=== PATIENT | male | born 1985 ===

== ENCOUNTER 2023-04-18 12:53 | Inpatient (IN) | payer MEDICAID ==
[~2023-04-18] VITALS: Ht 177.8 cm; Wt 79.4 kg
[~2023-04-18 12:53] MED LIST: ALBUMIN HUMAN 25% 50 ML IV SCH
[2023-04-18 13:11] VITALS: BP 111/60; PULSE 103; RESP 18; TEMP 97.7; O2SAT 100
[2023-04-18 15:11] LABS: BASOPHILS % (AUTO) 0.2 % (0.0-2.0); EOSINOPHILS # (AUTO) 0.9 K/uL (0-0.4); EOSINOPHILS % (AUTO) 5.3 % (0.0-4.0); LYMPHOCYTES # (AUTO) 0.7 K/uL (2.0-11.5); LYMPHOCYTES % (AUTO) 4.1 % (20.5-51.1); MEAN CORPUSCULAR HEMOGLOBIN 33 pg (27-31); MEAN CORPUSCULAR HGB CONC 34 g/dL (33-37); MEAN CORPUSCULAR VOLUME 95.6 fL (80-94); MONOCYTES # (AUTO) 2.5 K/uL (0.8-1.0); NEUTROPHILS # (AUTO) 12.7 K/uL (1.8-7.7); NEUTROPHILS % (AUTO) 75.4 % (42.2-75.2); PLATELET COUNT (AUTO) 85 K/uL (140-450); RED CELL DISTRIBUTION WIDTH 19.1 % (11.6-13.7); WHITE BLOOD COUNT (AUTO) 16.8 K/uL (4.8-10.8)
[2023-04-18 15:14] LABS: HEMOGLOBIN 6.8 g/dL (12.0-18.0)
[2023-04-18 15:32] LABS: INR 1.85 (0.8-1.2); LACTIC ACID 2.8 mmol/L (0.4-2.0); PARTIAL THROMBOPLASTIN TIME 36.2 secs (22-35.6); PROTHROMBIN TIME 18.9 secs (10.8-13.4)
[2023-04-18 15:37] LABS: ALBUMIN 1.7 g/dL (3.4-5.0); ANION GAP 13.4 (8-16); CALCIUM 7.5 mg/dL (8.5-10.1); CARBON DIOXIDE 19.8 mmol/L (21-32); CREATININE 3.4 mg/dL (0.6-1.3); POTASSIUM 4.2 mmol/L (3.5-5.1); TOTAL BILIRUBIN 8.6 mg/dL (0.0-1.0); TOTAL PROTEIN, SERUM 6.4 g/dL (6.4-8.2)
[2023-04-18] MEDS ORDERED: cefTRIAXone 1,000 MG VIAL ONE (15:54)
[2023-04-18] MEDS ORDERED: OCTREOTIDE ACETATE 1.25 MG in NACL 0.9% 250 ML IV SCH (15:55)
[2023-04-18] MEDS ORDERED: ALBUMIN HUMAN 25% 50 ML IV ONE (15:55)
[2023-04-18] MEDS ORDERED: ONDANSETRON 4 MG/2 ML VIAL IVP PRN (16:30)
[2023-04-18] MEDS ORDERED: POTASSIUM CHLORIDE 10 MEQ TABER PO PRN (16:30)
[2023-04-18] MEDS ORDERED: MAGNESIUM OXIDE 400 MG TAB PO PRN (16:30)
[2023-04-18] MEDS ORDERED: KCL 20 MEQ IN 100 mL PREMIX 200 ML IV PRN (16:30)
[2023-04-18] MEDS: OCTREOTIDE ACETATE 1.25 MG in NACL 0.9% 250 ML IV SCH (17:41)
[2023-04-18 20:40] VITALS: BP 112/69; PULSE 103; PULSE 97; RESP 18; TEMP 97.9; O2SAT 100
[2023-04-18] MEDS: PANTOPRAZOLE 40 MG INJ VIAL IVP SCH (21:51)
[2023-04-18 23:29] LABS: HEMATOCRIT 22.5 % (36-52); HEMOGLOBIN 7.6 g/dL (12.0-18.0)
[2023-04-19] VITALS: BP 98/65; PULSE 91; PULSE 93; RESP 18; TEMP 96.4; O2SAT 97
[2023-04-19] MEDS: ALBUMIN HUMAN 25% 50 ML IV SCH ×4 (00:01→18:31)
[2023-04-19 04:00] VITALS: BP 129/75; PULSE 98; PULSE 99; RESP 18; TEMP 96.8; O2SAT 100
[2023-04-19 06:40] LABS: BASOPHILS # (AUTO) 0.1 K/uL (0.00-0.22); BASOPHILS % (AUTO) 0.5 % (0.0-2.0); EOSINOPHILS # (AUTO) 1.7 K/uL (0-0.4); EOSINOPHILS % (AUTO) 10.8 % (0.0-4.0); HEMATOCRIT 23.2 % (36-52); HEMOGLOBIN 7.9 g/dL (12.0-18.0); LYMPHOCYTES # (AUTO) 0.8 K/uL (2.0-11.5); MEAN CORPUSCULAR HEMOGLOBIN 32 pg (27-31); MEAN CORPUSCULAR HGB CONC 34 g/dL (33-37); MEAN CORPUSCULAR VOLUME 93.3 fL (80-94); MONOCYTES # (AUTO) 1.6 K/uL (0.8-1.0); MONOCYTES % (AUTO) 10.7 % (1.7-9.3); NEUTROPHILS # (AUTO) 11.3 K/uL (1.8-7.7); PLATELET COUNT (AUTO) 79 K/uL (140-450); RED BLOOD CELL COUNT(AUTO) 2.49 MIL/uL (4.20-6.10); RED CELL DISTRIBUTION WIDTH 19.1 % (11.6-13.7); WHITE BLOOD COUNT (AUTO) 15.4 K/uL (4.8-10.8)
[2023-04-19 07:03] LABS: ALBUMIN 2.1 g/dL (3.4-5.0); ANION GAP 12.8 (8-16); CALCIUM 7.7 mg/dL (8.5-10.1); CARBON DIOXIDE 20.2 mmol/L (21-32); CREATININE 3.3 mg/dL (0.6-1.3); MAGNESIUM 1.8 mg/dL (1.8-2.4); PHOSPHORUS 4.6 mg/dL (2.5-4.9); TOTAL BILIRUBIN 9.7 mg/dL (0.0-1.0); TOTAL PROTEIN, SERUM 6.6 g/dL (6.4-8.2)
[2023-04-19 08:00] VITALS: BP 121/75; PULSE 94; RESP 18; RESP 19; TEMP 97.8; O2SAT 100
[2023-04-19] MEDS: PANTOPRAZOLE 40 MG INJ VIAL IVP SCH ×2 (08:53→20:01)
[2023-04-19 12:00] VITALS: BP 118/70; PULSE 101; RESP 19; TEMP 98.1; O2SAT 100
[2023-04-19] MEDS ORDERED: PHYTONADIONE 10 MG in NACL 0.9% 50 ML IV SCH (13:00)
[2023-04-19] MEDS ORDERED: FUROSEMIDE 20 MG/2 ML VIAL IVP SCH (13:00)
[2023-04-19 16:00] VITALS: BP 108/52; PULSE 100; PULSE 107; RESP 19; TEMP 98.2; O2SAT 100
[2023-04-19 17:18] LABS: GLUCOSE,BODY FLUID 131 mg/dL
[2023-04-19 17:43] LABS: PROTEIN, BODY FLUID 0.5 g/dL
[2023-04-19] MEDS: OCTREOTIDE ACETATE 1.25 MG in NACL 0.9% 250 ML IV SCH (17:57)
[2023-04-19] MEDS ORDERED: FUROSEMIDE 40 MG/4 ML VIAL IVP SCH (18:00)
[2023-04-19] MEDS ORDERED: FUROSEMIDE 40 MG/4 ML VIAL IVP ONE (18:00)
[2023-04-19 18:36] LABS: RBC, BODY FLUID 684 /cu. mm.; WBC, BODY FLUID 4 /cu. mm.
[2023-04-19 18:49] LABS: APPEARANCE,SPUN,BODY FLUID CLEAR (CLEAR); APPEARANCE,UNSPUN,BODY FLUID CLEAR (CLEAR); COLOR,BODY FLUID AMBER (LT YELLOW); SPECIMENTYPE,BODY FLUID PARACENTESIS; TOTAL VOLUME,BODY FLUID 4600 mL
[2023-04-19 20:00] VITALS: BP 117/62; PULSE 107; PULSE 112; RESP 18; TEMP 97.9; O2SAT 100
[2023-04-20] VITALS: BP 109/55; PULSE 109; PULSE 117; RESP 19; TEMP 98.1; O2SAT 100
[2023-04-20] MEDS: ALBUMIN HUMAN 25% 50 ML IV SCH ×3 (00:10→15:10)
[2023-04-20 04:00] VITALS: BP 104/61; PULSE 99; RESP 18; TEMP 98; O2SAT 100
[2023-04-20 07:12] LABS: BASOPHILS % (AUTO) 0.2 % (0.0-2.0); EOSINOPHILS # (AUTO) 1.3 K/uL (0-0.4); EOSINOPHILS % (AUTO) 12.1 % (0.0-4.0); LYMPHOCYTES # (AUTO) 0.8 K/uL (2.0-11.5); MEAN CORPUSCULAR HEMOGLOBIN 32 pg (27-31); MEAN CORPUSCULAR HGB CONC 35 g/dL (33-37); MEAN CORPUSCULAR VOLUME 93.4 fL (80-94); MONOCYTES # (AUTO) 1.2 K/uL (0.8-1.0); MONOCYTES % (AUTO) 10.7 % (1.7-9.3); NEUTROPHILS # (AUTO) 7.7 K/uL (1.8-7.7); PLATELET COUNT (AUTO) 59 K/uL (140-450); RED BLOOD CELL COUNT(AUTO) 2.09 MIL/uL (4.20-6.10); RED CELL DISTRIBUTION WIDTH 18.8 % (11.6-13.7); WHITE BLOOD COUNT (AUTO) 10.9 K/uL (4.8-10.8)
[2023-04-20 07:33] LABS: HEMATOCRIT 19.5 % (36-52); HEMOGLOBIN 6.8 g/dL (12.0-18.0)
[2023-04-20 08:00] VITALS: BP 110/58; PULSE 94; PULSE 96; RESP 20; TEMP 97.9; O2SAT 98
[2023-04-20] MEDS: LACTULOSE 20 GM/30 ML UDC PO SCH (09:00)
[2023-04-20 09:01] LABS: ALBUMIN 2.1 g/dL (3.4-5.0); ANION GAP 15.8 (8-16); CALCIUM 7.4 mg/dL (8.5-10.1); CARBON DIOXIDE 17.3 mmol/L (21-32); CREATININE 2.9 mg/dL (0.6-1.3); MAGNESIUM 1.8 mg/dL (1.8-2.4); PHOSPHORUS 4.4 mg/dL (2.5-4.9); POTASSIUM 4.1 mmol/L (3.5-5.1); TOTAL BILIRUBIN 7.5 mg/dL (0.0-1.0); TOTAL PROTEIN, SERUM 5.6 g/dL (6.4-8.2)
[2023-04-20] MEDS: PANTOPRAZOLE 40 MG INJ VIAL IVP SCH ×2 (09:06→21:32)
[2023-04-20] MEDS: MORPHINE SULFATE 4 MG/ML SYR IVP PRN (09:15)
[2023-04-20 12:00] VITALS: BP 106/48; PULSE 103; PULSE 109; RESP 20; TEMP 98; O2SAT 98
[2023-04-20] MEDS ORDERED: FUROSEMIDE 20 MG/2 ML VIAL IVP ONE (14:10)
[2023-04-20] MEDS ORDERED: ALBUMIN HUMAN 25% 50 ML IV ONE (15:03)
[2023-04-20 16:00] VITALS: BP 126/74; PULSE 106; PULSE 107; RESP 20; TEMP 97.6; O2SAT 99
[2023-04-20 20:00] VITALS: BP 112/72; PULSE 80; RESP 18; TEMP 97.6; O2SAT 97
[2023-04-20] MEDS: OCTREOTIDE ACETATE 1.25 MG in NACL 0.9% 250 ML IV SCH (21:32)
[2023-04-20] MEDS: ACETAMINOPHEN 325 MG TAB PO PRN (21:34)
[2023-04-21] VITALS: BP 104/63; PULSE 100; PULSE 107; RESP 16; TEMP 98.2; O2SAT 96
[2023-04-21] MEDS: MORPHINE SULFATE 4 MG/ML SYR IVP PRN (03:29)
[2023-04-21 04:00] VITALS: BP 100/56; PULSE 102; PULSE 104; RESP 18; TEMP 98.8; O2SAT 97
[2023-04-21 07:42] LABS: ALBUMIN 2.1 g/dL (3.4-5.0); ANION GAP 13.3 (8-16); CALCIUM 7.5 mg/dL (8.5-10.1); CARBON DIOXIDE 20.1 mmol/L (21-32); CREATININE 2.4 mg/dL (0.6-1.3); MAGNESIUM 1.5 mg/dL (1.8-2.4); PHOSPHORUS 4.3 mg/dL (2.5-4.9); POTASSIUM 4.4 mmol/L (3.5-5.1); TOTAL PROTEIN, SERUM 5.7 g/dL (6.4-8.2)
[2023-04-21 07:53] LABS: BASOPHILS % (AUTO) 0.1 % (0.0-2.0); EOSINOPHILS # (AUTO) 1.2 K/uL (0-0.4); EOSINOPHILS % (AUTO) 9.7 % (0.0-4.0); HEMATOCRIT 20.9 % (36-52); HEMOGLOBIN 7.1 g/dL (12.0-18.0); LYMPHOCYTES # (AUTO) 0.8 K/uL (2.0-11.5); LYMPHOCYTES % (AUTO) 6.6 % (20.5-51.1); MEAN CORPUSCULAR HEMOGLOBIN 32 pg (27-31); MEAN CORPUSCULAR HGB CONC 34 g/dL (33-37); MEAN CORPUSCULAR VOLUME 93.4 fL (80-94); MONOCYTES # (AUTO) 1.8 K/uL (0.8-1.0); NEUTROPHILS # (AUTO) 8.8 K/uL (1.8-7.7); NEUTROPHILS % (AUTO) 69.6 % (42.2-75.2); PLATELET COUNT (AUTO) 58 K/uL (140-450); RED BLOOD CELL COUNT(AUTO) 2.24 MIL/uL (4.20-6.10); RED CELL DISTRIBUTION WIDTH 18.1 % (11.6-13.7)
[2023-04-21 08:00] VITALS: BP 123/84; PULSE 109; PULSE 110; RESP 20; TEMP 97.9; O2SAT 99
[2023-04-21 08:08] LABS: WHITE BLOOD COUNT (AUTO) 12.7 K/uL (4.8-10.8)
[2023-04-21] MEDS: LACTULOSE 20 GM/30 ML UDC PO SCH (09:00)
[2023-04-21] MEDS ORDERED: ALBUMIN HUMAN 25% 100 ML IV SCH (09:00)
[2023-04-21] MEDS: PANTOPRAZOLE 40 MG INJ VIAL IVP SCH ×2 (10:44→20:31)
[2023-04-21 12:00] VITALS: BP 131/76; PULSE 105; PULSE 108; RESP 20; TEMP 98.1; O2SAT 98
[2023-04-21] MEDS: MAG SULF 2000 MG/WATER PREMIX 50 ML IV PRN (13:04)
[2023-04-21] MEDS ORDERED: FUROSEMIDE 20 MG/2 ML VIAL IVP ONE (14:15)
[2023-04-21 16:00] VITALS: BP 111/53; PULSE 105; PULSE 119; RESP 20; TEMP 98.8; O2SAT 98
[2023-04-21 20:00] VITALS: BP 101/47; PULSE 102; PULSE 97; RESP 20; TEMP 97.9; O2SAT 99
[2023-04-21] MEDS: OCTREOTIDE ACETATE 1.25 MG in NACL 0.9% 250 ML IV SCH (20:51)
[2023-04-21] MEDS: ACETAMINOPHEN 325 MG TAB PO PRN (23:22)
[2023-04-22] VITALS (7 sets, daily range): BP systolic 98–130; BP diastolic 41–75; PULSE 93–103; RESP 18–19; TEMP 98.2–98.7; O2SAT 97–100
[2023-04-22 06:32] LABS: BASOPHILS % (AUTO) 0.5 % (0.0-2.0); EOSINOPHILS % (AUTO) 10.9 % (0.0-4.0); LYMPHOCYTES # (AUTO) 1.1 K/uL (2.0-11.5); LYMPHOCYTES % (AUTO) 11.6 % (20.5-51.1); MEAN CORPUSCULAR HEMOGLOBIN 32 pg (27-31); MEAN CORPUSCULAR HGB CONC 35 g/dL (33-37); MEAN CORPUSCULAR VOLUME 92.9 fL (80-94); MONOCYTES # (AUTO) 1.3 K/uL (0.8-1.0); MONOCYTES % (AUTO) 14.1 % (1.7-9.3); NEUTROPHILS % (AUTO) 62.9 % (42.2-75.2); PLATELET COUNT (AUTO) 53 K/uL (140-450); RED BLOOD CELL COUNT(AUTO) 2.06 MIL/uL (4.20-6.10); RED CELL DISTRIBUTION WIDTH 18.1 % (11.6-13.7); WHITE BLOOD COUNT (AUTO) 9.5 K/uL (4.8-10.8)
[2023-04-22 07:00] LABS: ALBUMIN 2.1 g/dL (3.4-5.0); ANION GAP 11.5 (8-16); CALCIUM 7.3 mg/dL (8.5-10.1); CARBON DIOXIDE 21.7 mmol/L (21-32); CREATININE 2.3 mg/dL (0.6-1.3); MAGNESIUM 1.6 mg/dL (1.8-2.4); PHOSPHORUS 3.9 mg/dL (2.5-4.9); POTASSIUM 4.2 mmol/L (3.5-5.1); TOTAL PROTEIN, SERUM 5.3 g/dL (6.4-8.2)
[2023-04-22 07:38] LABS: HEMOGLOBIN 6.6 g/dL (12.0-18.0)
[2023-04-22 07:39] LABS: HEMATOCRIT 19.1 % (36-52)
[2023-04-22] MEDS ORDERED: FUROSEMIDE 20 MG/2 ML VIAL IVP SCH ×2 (09:00→16:00)
[2023-04-22] MEDS: LACTULOSE 20 GM/30 ML UDC PO SCH (09:14)
[2023-04-22] MEDS: PANTOPRAZOLE 40 MG INJ VIAL IVP SCH ×2 (09:15→20:56)
[2023-04-22] MEDS: MORPHINE SULFATE 4 MG/ML SYR IVP PRN (15:29)
[2023-04-22] MEDS: ALBUMIN HUMAN 25% 100 ML IV SCH (20:55)
[2023-04-23] VITALS: BP 111/46; PULSE 106; PULSE 107; RESP 18; TEMP 98; O2SAT 100
[2023-04-23 04:00] VITALS: BP 137/79; PULSE 102; PULSE 99; RESP 18; TEMP 97.5; O2SAT 100
[2023-04-23 06:53] LABS: BASOPHILS # (AUTO) 0.1 K/uL (0.00-0.22); BASOPHILS % (AUTO) 0.6 % (0.0-2.0); LYMPHOCYTES % (AUTO) 10.1 % (20.5-51.1); MEAN CORPUSCULAR HEMOGLOBIN 32 pg (27-31); MEAN CORPUSCULAR HGB CONC 35 g/dL (33-37); MEAN CORPUSCULAR VOLUME 92.2 fL (80-94); MONOCYTES # (AUTO) 1.6 K/uL (0.8-1.0); NEUTROPHILS # (AUTO) 5.8 K/uL (1.8-7.7); NEUTROPHILS % (AUTO) 61.3 % (42.2-75.2); PLATELET COUNT (AUTO) 53 K/uL (140-450); RED BLOOD CELL COUNT(AUTO) 2.12 MIL/uL (4.20-6.10); RED CELL DISTRIBUTION WIDTH 17.3 % (11.6-13.7); WHITE BLOOD COUNT (AUTO) 9.5 K/uL (4.8-10.8)
[2023-04-23 07:11] LABS: INR 2.64 (0.8-1.2); PROTHROMBIN TIME 26.5 secs (10.8-13.4)
[2023-04-23 07:23] LABS: ALBUMIN 2.3 g/dL (3.4-5.0); ANION GAP 12.7 (8-16); CALCIUM 7.5 mg/dL (8.5-10.1); CARBON DIOXIDE 21.3 mmol/L (21-32); CREATININE 1.5 mg/dL (0.6-1.3); MAGNESIUM 1.4 mg/dL (1.8-2.4); PHOSPHORUS 3.1 mg/dL (2.5-4.9); TOTAL BILIRUBIN 7.7 mg/dL (0.0-1.0); TOTAL PROTEIN, SERUM 5.7 g/dL (6.4-8.2)
[2023-04-23 08:00] VITALS: BP 124/72; PULSE 101; PULSE 98; RESP 18; TEMP 98.6; O2SAT 100
[2023-04-23 08:17] LABS: HEMATOCRIT 19.6 % (36-52); HEMOGLOBIN 6.8 g/dL (12.0-18.0)
[2023-04-23] MEDS: PANTOPRAZOLE 40 MG INJ VIAL IVP SCH (08:48)
[2023-04-23] MEDS: ALBUMIN HUMAN 25% 100 ML IV SCH ×2 (08:48→20:51)
[2023-04-23] MEDS: FUROSEMIDE 40 MG/4 ML VIAL IVP SCH (08:49)
[2023-04-23] MEDS ORDERED: ALBUMIN HUMAN 25% 100 ML IV SCH (09:00)
[2023-04-23] MEDS: LACTULOSE 20 GM/30 ML UDC PO SCH (09:02)
[2023-04-23] MEDS: MULTIVITAMIN/MINERALS 1 TAB PO SCH (09:02)
[2023-04-23] MEDS: THIAMINE 100 MG TAB PO SCH (09:03)
[2023-04-23 12:00] VITALS: BP 106/67; PULSE 96; PULSE 98; RESP 18; TEMP 96.9; O2SAT 100
[2023-04-23] MEDS ORDERED: MIDAZOLAM 2 MG/2 ML VIAL ONE (12:58)
[2023-04-23] MEDS ORDERED: fentaNYL citrate 0.05 MG/ML VIAL ONE (12:58)
[2023-04-23] MEDS ORDERED: MIDAZOLAM 2 MG/2 ML VIAL IVP ONE (15:05)
[2023-04-23] MEDS ORDERED: fentaNYL citrate 0.05 MG/ML VIAL IVP ONE (15:05)
[2023-04-23] MEDS ORDERED: PHYTONADIONE 10 MG in NACL 0.9% 50 ML IV SCH (15:30)
[2023-04-23 16:00] VITALS: BP 122/82; PULSE 94; PULSE 96; RESP 18; TEMP 98.2; O2SAT 100
[2023-04-23] MEDS: MAG SULF 2000 MG/WATER PREMIX 50 ML IV PRN (17:01)
[2023-04-23] MEDS: FERROUS GLUCONATE 324 MG TAB PO SCH (17:41)
[2023-04-23 20:00] VITALS: BP 120/60; PULSE 108; PULSE 99; RESP 18; TEMP 97.5; O2SAT 100; O2SAT 98
[2023-04-23 23:40] LABS: BASOPHILS # (AUTO) 0.1 K/uL (0.00-0.22); BASOPHILS % (AUTO) 0.5 % (0.0-2.0); EOSINOPHILS # (AUTO) 0.9 K/uL (0-0.4); EOSINOPHILS % (AUTO) 8.5 % (0.0-4.0); HEMOGLOBIN 7.9 g/dL (12.0-18.0); LYMPHOCYTES # (AUTO) 1.2 K/uL (2.0-11.5); MEAN CORPUSCULAR HEMOGLOBIN 32 pg (27-31); MEAN CORPUSCULAR HGB CONC 34 g/dL (33-37); MEAN CORPUSCULAR VOLUME 92.5 fL (80-94); MONOCYTES # (AUTO) 1.6 K/uL (0.8-1.0); NEUTROPHILS # (AUTO) 6.8 K/uL (1.8-7.7); PLATELET COUNT (AUTO) 53 K/uL (140-450); RED BLOOD CELL COUNT(AUTO) 2.49 MIL/uL (4.20-6.10); RED CELL DISTRIBUTION WIDTH 16.7 % (11.6-13.7); WHITE BLOOD COUNT (AUTO) 10.5 K/uL (4.8-10.8)
[2023-04-24] VITALS: BP 113/58; PULSE 103; PULSE 109; RESP 18; TEMP 97.8; O2SAT 99
[2023-04-24 04:00] VITALS: BP 98/51; PULSE 105; PULSE 111; RESP 18; TEMP 97.6; O2SAT 99
[2023-04-24] MEDS: PANTOPRAZOLE 40 MG TABEC PO SCH (06:48)
[2023-04-24 08:00] VITALS: BP 110/51; PULSE 104; PULSE 110; RESP 20; TEMP 99; O2SAT 96
[2023-04-24] MEDS: FERROUS GLUCONATE 324 MG TAB PO SCH ×2 (08:32→16:53)
[2023-04-24] MEDS: LACTULOSE 20 GM/30 ML UDC PO SCH (09:16)
[2023-04-24] MEDS: THIAMINE 100 MG TAB PO SCH (09:17)
[2023-04-24] MEDS: MULTIVITAMIN/MINERALS 1 TAB PO SCH (09:17)
[2023-04-24] MEDS: ALBUMIN HUMAN 25% 100 ML IV SCH ×2 (09:19→21:43)
[2023-04-24] MEDS: FUROSEMIDE 40 MG/4 ML VIAL IVP SCH (09:19)
[2023-04-24 10:33] LABS: BASOPHILS # (AUTO) 0.1 K/uL (0.00-0.22); BASOPHILS % (AUTO) 0.5 % (0.0-2.0); EOSINOPHILS # (AUTO) 1.1 K/uL (0-0.4); EOSINOPHILS % (AUTO) 8.6 % (0.0-4.0); HEMATOCRIT 23.9 % (36-52); LYMPHOCYTES # (AUTO) 1.2 K/uL (2.0-11.5); LYMPHOCYTES % (AUTO) 9.5 % (20.5-51.1); MEAN CORPUSCULAR HEMOGLOBIN 31 pg (27-31); MEAN CORPUSCULAR HGB CONC 34 g/dL (33-37); MEAN CORPUSCULAR VOLUME 92.4 fL (80-94); MONOCYTES # (AUTO) 1.6 K/uL (0.8-1.0); MONOCYTES % (AUTO) 12.3 % (1.7-9.3); NEUTROPHILS # (AUTO) 8.7 K/uL (1.8-7.7); NEUTROPHILS % (AUTO) 69.1 % (42.2-75.2); PLATELET COUNT (AUTO) 54 K/uL (140-450); RED BLOOD CELL COUNT(AUTO) 2.58 MIL/uL (4.20-6.10); RED CELL DISTRIBUTION WIDTH 17.1 % (11.6-13.7); WHITE BLOOD COUNT (AUTO) 12.6 K/uL (4.8-10.8)
[2023-04-24 11:01] LABS: ANION GAP 15.1 (8-16); CALCIUM 8.2 mg/dL (8.5-10.1); CARBON DIOXIDE 21.7 mmol/L (21-32); CREATININE 1.4 mg/dL (0.6-1.3); POTASSIUM 3.8 mmol/L (3.5-5.1); TOTAL BILIRUBIN 9.9 mg/dL (0.0-1.0); TOTAL PROTEIN, SERUM 6.8 g/dL (6.4-8.2)
[2023-04-24 12:00] VITALS: BP 121/64; PULSE 95; RESP 18; TEMP 98.3; O2SAT 100
[2023-04-24 16:00] VITALS: BP 129/73; PULSE 100; PULSE 97; RESP 18; TEMP 98.5; O2SAT 100
[2023-04-24 20:00] VITALS: BP 120/64; PULSE 103; PULSE 99; RESP 17; RESP 18; TEMP 98.1; O2SAT 98
[2023-04-25] VITALS: BP 118/59; PULSE 108; PULSE 95; RESP 17; TEMP 98.5; O2SAT 99
[2023-04-25 04:00] VITALS: BP 100/49; PULSE 102; PULSE 99; RESP 17; TEMP 98.3; O2SAT 96
[2023-04-25] MEDS: PANTOPRAZOLE 40 MG TABEC PO SCH (06:35)
[2023-04-25 08:00] VITALS: BP 104/59; PULSE 100; PULSE 98; RESP 17; RESP 18; TEMP 98.2; O2SAT 96
[2023-04-25] MEDS: FERROUS GLUCONATE 324 MG TAB PO SCH (08:16)
[2023-04-25] MEDS: ALBUMIN HUMAN 25% 100 ML IV SCH (08:46)
[2023-04-25] MEDS: LACTULOSE 20 GM/30 ML UDC PO SCH (08:54)
[2023-04-25] MEDS: MULTIVITAMIN/MINERALS 1 TAB PO SCH (08:54)
[2023-04-25] MEDS: THIAMINE 100 MG TAB PO SCH (08:54)
[2023-04-25] MEDS: FUROSEMIDE 40 MG/4 ML VIAL IVP SCH (08:56)
[2023-04-25 12:00] VITALS: BP 112/72; PULSE 100; PULSE 101; RESP 19; TEMP 98.3; O2SAT 97
[2023-04-25] MEDS ORDERED: MIDO10TA PO (15:58)
[2023-04-25] MEDS ORDERED: FURO-570 PO (15:58)
[2023-04-25] MEDS ORDERED: SPIR50TA PO (15:58)
[2023-04-25] MEDS ORDERED: LACT-103 PO (15:58)
[2023-04-26] MEDS ORDERED: SPIRONOLACTONE 25 MG TAB PO SCH (09:00)
== END 2023-04-25 18:10 | disposition home or self-care (01) | DRG 280 ==
LOC: MED 12:53 → MTU 16:29
PROVIDERS: ADMIT Hospitalist; ATTEND Hospitalist
PROC: 30233N1 Transfusion of Nonautologous Red Blood Cells into Peripheral Vein, Percutaneous Approach (ICD-10-PCS; 2023-04-18)
PROC: 0W9G3ZX Drainage of Peritoneal Cavity, Percutaneous Approach, Diagnostic (ICD-10-PCS; principal; 2023-04-19)
PROC: 06L38CZ Occlusion of Esophageal Vein with Extraluminal Device, Via Natural or Artificial Opening Endoscopic (ICD-10-PCS; 2023-04-23)
DX: K70.31 Alcoholic cirrhosis of liver with ascites (principal); N17.0 Acute kidney failure with tubular necrosis; K76.7 Hepatorenal syndrome; I85.11 Secondary esophageal varices with bleeding; K76.6 Portal hypertension; B19.10 Unspecified viral hepatitis B without hepatic coma; E87.1 Hypo-osmolality and hyponatremia; D62 Acute posthemorrhagic anemia; I85.10 Secondary esophageal varices without bleeding; R65.10 Systemic inflammatory response syndrome (SIRS) of non-infectious origin without acute organ dysfunction; L03.115 Cellulitis of right lower limb; D69.59 Other secondary thrombocytopenia; N18.9 Chronic kidney disease, unspecified; F10.10 Alcohol abuse, uncomplicated; Y90.9 Presence of alcohol in blood, level not specified; I87.8 Other specified disorders of veins; L03.116 Cellulitis of left lower limb
CPT/HCPCS: 36415; 36430; 49083; 76705; 80053; 82105; 82140; 82533; 82945; 83605; 83690; 83735; 83930; 83935; 84100; 84133; 84157; 84300; 84443; 85018; 85025; 85610; 85730; 86886; 86900; 86901; 86920; 87040; 87081; 87205; 87340; 89051; 96365; 96366; 96367; 99291; C9113; J0696; J1940; J2001; J2250; J2270; J2354; J3010; J3430; J3475; J7030; J7060; P9016; P9046; Q0092

== ENCOUNTER 2023-07-23 13:49 | Inpatient (IN) | payer MEDICAID, OTHER ==
[~2023-07-23] VITALS: Ht 172.7 cm; Wt 74.8 kg
[~2023-07-23 13:49] MED LIST changes: -ALBUMIN HUMAN 25% 50 ML IV SCH; +FURO-570 PO; +LACT-103 PO; +MIDO10TA PO; +SPIR50TA PO
[2023-07-23 13:54] VITALS: BP 128/76; PULSE 115; RESP 20; TEMP 97.9; O2SAT 97
[2023-07-23 14:46] LABS: BASOPHILS # (AUTO) 0.1 K/uL (0.00-0.22); BASOPHILS % (AUTO) 0.5 % (0.0-2.0); EOSINOPHILS # (AUTO) 1.1 K/uL (0-0.4); EOSINOPHILS % (AUTO) 6.1 % (0.0-4.0); HEMATOCRIT 20.5 % (36-52); LYMPHOCYTES # (AUTO) 0.8 K/uL (2.0-11.5); LYMPHOCYTES % (AUTO) 4.2 % (20.5-51.1); MEAN CORPUSCULAR HEMOGLOBIN 31 pg (27-31); MEAN CORPUSCULAR HGB CONC 34 g/dL (33-37); MEAN CORPUSCULAR VOLUME 91.8 fL (80-94); MONOCYTES # (AUTO) 1.7 K/uL (0.8-1.0); MONOCYTES % (AUTO) 9.2 % (1.7-9.3); NEUTROPHILS # (AUTO) 14.5 K/uL (1.8-7.7); PLATELET COUNT (AUTO) 130 K/uL (140-450); RED BLOOD CELL COUNT(AUTO) 2.23 MIL/uL (4.20-6.10); RED CELL DISTRIBUTION WIDTH 20.9 % (11.6-13.7); WHITE BLOOD COUNT (AUTO) 18.1 K/uL (4.8-10.8)
[2023-07-23 14:55] LABS: ANION GAP 11.1 (8-16); CALCIUM 8.1 mg/dL (8.5-10.1); CARBON DIOXIDE 27.1 mmol/L (21-32); POTASSIUM 4.2 mmol/L (3.5-5.1)
[2023-07-23 15:05] LABS: ALBUMIN 2.3 g/dL (3.4-5.0); BILIRUBIN,DIRECT 6.2 mg/dL (0.0-0.3); TOTAL BILIRUBIN 12.8 mg/dL (0.0-1.0); TOTAL PROTEIN, SERUM 7.7 g/dL (6.4-8.2)
[2023-07-23 15:11] LABS: INR 2.26 (0.8-1.2); PARTIAL THROMBOPLASTIN TIME 40.5 secs (22-35.6); PROTHROMBIN TIME 22.8 secs (10.8-13.4)
[2023-07-23] MEDS ORDERED: ONDANSETRON 4 MG/2 ML VIAL IVP PRN (17:15)
[2023-07-23] MEDS ORDERED: MORPHINE SULFATE 2 MG/ML SYR IVP PRN (17:15)
[2023-07-23] MEDS ORDERED: ZOLPIDEM 5 MG TAB PO PRN (17:15)
[2023-07-23] MEDS ORDERED: LORazepam 1 MG TAB PO PRN (17:15)
[2023-07-23 17:46] VITALS: O2SAT 97
[2023-07-23] MEDS ORDERED: SPIR50TA25 PO (17:46)
[2023-07-23] MEDS ORDERED: FURO40TA9 PO (17:46)
[2023-07-23 20:00] VITALS: PULSE 100; RESP 18; O2SAT 97
[2023-07-23 21:33] VITALS: BP 120/67; PULSE 100; RESP 18; TEMP 97.8; O2SAT 97
[2023-07-23 21:39] VITALS: PULSE 117
[2023-07-24] VITALS (7 sets, daily range): BP systolic 112–143; BP diastolic 56–84; PULSE 88–125; RESP 16–18; TEMP 97.5–99; O2SAT 94–98
[2023-07-24] MEDS: MORPHINE SULFATE 4 MG/ML SYR IVP PRN (03:27)
[2023-07-24 07:01] LABS: BASOPHILS # (AUTO) 0.1 K/uL (0.00-0.22); BASOPHILS % (AUTO) 0.6 % (0.0-2.0); EOSINOPHILS # (AUTO) 1.4 K/uL (0-0.4); EOSINOPHILS % (AUTO) 6.2 % (0.0-4.0); LYMPHOCYTES # (AUTO) 1.1 K/uL (2.0-11.5); LYMPHOCYTES % (AUTO) 5.3 % (20.5-51.1); MEAN CORPUSCULAR HEMOGLOBIN 30 pg (27-31); MEAN CORPUSCULAR HGB CONC 33 g/dL (33-37); MEAN CORPUSCULAR VOLUME 91.8 fL (80-94); MONOCYTES # (AUTO) 2.2 K/uL (0.8-1.0); MONOCYTES % (AUTO) 10.2 % (1.7-9.3); NEUTROPHILS # (AUTO) 16.9 K/uL (1.8-7.7); NEUTROPHILS % (AUTO) 77.7 % (42.2-75.2); PLATELET COUNT (AUTO) 128 K/uL (140-450); RED BLOOD CELL COUNT(AUTO) 2.13 MIL/uL (4.20-6.10); RED CELL DISTRIBUTION WIDTH 20.8 % (11.6-13.7); WHITE BLOOD COUNT (AUTO) 21.7 K/uL (4.8-10.8)
[2023-07-24 07:13] LABS: INR 2.42 (0.8-1.2); PARTIAL THROMBOPLASTIN TIME 46.1 secs (22-35.6); PROTHROMBIN TIME 24.4 secs (10.8-13.4)
[2023-07-24 07:22] LABS: HEMOGLOBIN 6.5 g/dL (12.0-18.0)
[2023-07-24 07:23] LABS: HEMATOCRIT 19.6 % (36-52)
[2023-07-24 07:33] LABS: ALBUMIN 2.1 g/dL (3.4-5.0); ANION GAP 12.9 (8-16); CARBON DIOXIDE 25.3 mmol/L (21-32); CREATININE 1.9 mg/dL (0.6-1.3); MAGNESIUM 1.5 mg/dL (1.8-2.4); PHOSPHORUS 3.3 mg/dL (2.5-4.9); POTASSIUM 4.2 mmol/L (3.5-5.1); TOTAL PROTEIN, SERUM 7.1 g/dL (6.4-8.2)
[2023-07-24] MEDS: DOCUSATE SODIUM 100 MG GELCAP PO SCH (09:00)
[2023-07-24] MEDS: fentaNYL citrate 0.05 MG/ML VIAL ONE (11:49)
[2023-07-24] MEDS: diphenhydrAMINE 50 MG/ML VIAL ONE (11:49)
[2023-07-24] MEDS: MIDAZOLAM 5 MG/5 ML VIAL ONE (11:49)
[2023-07-24] MEDS: MAG SULF 2000 MG/WATER PREMIX 50 ML IV SCH (12:00)
[2023-07-24] MEDS: MIDAZOLAM 5 MG/5 ML VIAL IV ONE (12:46)
[2023-07-24] MEDS: fentaNYL citrate 0.05 MG/ML VIAL IVP ONE (12:47)
[2023-07-24] MEDS: MEROPENEM 1,000 MG in NACL 0.9% 50 ML IV SCH (15:00)
[2023-07-24] MEDS: LANSOPRAZOLE 30 MG CAPDR PO SCH (16:56)
[2023-07-24] MEDS: LACTULOSE 20 GM/30 ML UDC PO SCH (20:54)
[2023-07-24] MEDS: RIFAXIMIN 550 MG TAB PO SCH (20:54)
[2023-07-24] MEDS: HYDROcodone/APAP 5/325 MG 1 TAB TAB PO PRN (21:16)
[2023-07-24 22:20] LABS: APPEARANCE,URINE CLEAR (CLEAR); BILIRUBIN,URINE 2+ (NEGATIVE); BLOOD, URINE 1+ (NEGATIVE); COLOR,URINE YELLOW (YELLOW); LEUKOCYTE ESTERASE ,URINE NEGATIVE (NEGATIVE); NITRITE, URINE NEGATIVE (NEGATIVE); PROTEIN,URINE NEGATIVE (NEGATIVE); UGLUCOSE NEGATIVE (NEGATIVE)
[2023-07-24 22:42] LABS: ICTOTEST POSITIVE (NEGATIVE)
[2023-07-24 22:43] LABS: BACTERIA,URINE 10-30 (MOD) /HPF (None Seen); MUCUS,URINE 1+ /LPF (None Seen); SQUAMOUS EPITHELIAL CELL,UR 0-3 (FEW) /LPF (0-3 (FEW)); WBC,URINE 0-5 /HPF (0-5)
[2023-07-24] MEDS: ACETAMINOPHEN 325 MG TAB PO PRN (22:56)
[2023-07-25] VITALS (8 sets, daily range): BP systolic 117–144; BP diastolic 68–80; PULSE 112–126; RESP 8–24; TEMP 97.2–100.1; O2SAT 94–98
[2023-07-25 06:53] LABS: BASOPHILS # (AUTO) 0.1 K/uL (0.00-0.22); BASOPHILS % (AUTO) 0.5 % (0.0-2.0); EOSINOPHILS # (AUTO) 1.6 K/uL (0-0.4); EOSINOPHILS % (AUTO) 10.2 % (0.0-4.0); LYMPHOCYTES % (AUTO) 6.4 % (20.5-51.1); MEAN CORPUSCULAR HEMOGLOBIN 32 pg (27-31); MEAN CORPUSCULAR HGB CONC 35 g/dL (33-37); MEAN CORPUSCULAR VOLUME 90.7 fL (80-94); MONOCYTES # (AUTO) 2.2 K/uL (0.8-1.0); MONOCYTES % (AUTO) 14.7 % (1.7-9.3); NEUTROPHILS # (AUTO) 10.4 K/uL (1.8-7.7); NEUTROPHILS % (AUTO) 68.2 % (42.2-75.2); PLATELET COUNT (AUTO) 96 K/uL (140-450); RED BLOOD CELL COUNT(AUTO) 2.04 MIL/uL (4.20-6.10); RED CELL DISTRIBUTION WIDTH 19.2 % (11.6-13.7); WHITE BLOOD COUNT (AUTO) 15.2 K/uL (4.8-10.8)
[2023-07-25 07:13] LABS: HEMATOCRIT 18.5 % (36-52); HEMOGLOBIN 6.4 g/dL (12.0-18.0)
[2023-07-25 07:22] LABS: INR 2.04 (0.8-1.2); PARTIAL THROMBOPLASTIN TIME 44.7 secs (22-35.6); PROTHROMBIN TIME 20.7 secs (10.8-13.4)
[2023-07-25 08:33] LABS: ALBUMIN 2.1 g/dL (3.4-5.0); CALCIUM 8.1 mg/dL (8.5-10.1); CARBON DIOXIDE 25.5 mmol/L (21-32); CREATININE 1.4 mg/dL (0.6-1.3); MAGNESIUM 1.9 mg/dL (1.8-2.4); PHOSPHORUS 3.4 mg/dL (2.5-4.9); POTASSIUM 4.5 mmol/L (3.5-5.1); TOTAL BILIRUBIN 12.1 mg/dL (0.0-1.0); TOTAL PROTEIN, SERUM 6.8 g/dL (6.4-8.2)
[2023-07-25] MEDS: LACTULOSE 20 GM/30 ML UDC PO SCH (13:00)
[2023-07-25 19:59] LABS: APPEARANCE,SPUN,BODY FLUID BLOODY (CLEAR); APPEARANCE,UNSPUN,BODY FLUID BLOODY (CLEAR); COLOR,BODY FLUID RED (LT YELLOW); RBC, BODY FLUID 650000 /cu. mm.; SPECIMENTYPE,BODY FLUID PARACENTESIS; TOTAL VOLUME,BODY FLUID 2100 mL; WBC, BODY FLUID 1900 /cu. mm.
[2023-07-25 20:00] LABS: POLYNUCLEAR, BODY FLUID 80 %
[2023-07-25 20:04] LABS: APPEARANCE,SPUN,BODY FLUID CLEAR (CLEAR); APPEARANCE,UNSPUN,BODY FLUID HAZY (CLEAR); SPECIMENTYPE,BODY FLUID THORACENTESIS
[2023-07-25 20:05] LABS: COLOR,BODY FLUID YELLOW (LT YELLOW); POLYNUCLEAR, BODY FLUID 83 %; RBC, BODY FLUID 10000 /cu. mm.; TOTAL VOLUME,BODY FLUID 3600 mL; WBC, BODY FLUID 400 /cu. mm.
[2023-07-25 20:27] LABS: GLUCOSE,BODY FLUID 101 mg/dL; PROTEIN, BODY FLUID 1.1 g/dL
[2023-07-25] MEDS: BENZONATATE 100 MG CAPLF PO ONE (20:58)
[2023-07-25 21:12] LABS: HEMATOCRIT 22.2 % (36-52); HEMOGLOBIN 7.6 g/dL (12.0-18.0)
[2023-07-26] VITALS: BP 113/55; PULSE 120; RESP 8; TEMP 98.8; O2SAT 96
[2023-07-26 04:00] VITALS: BP 114/40; PULSE 115; RESP 8; TEMP 98.6; O2SAT 95
[2023-07-26] MEDS: BENZONATATE 100 MG CAPLF PO PRN (04:37)
[2023-07-26 07:01] LABS: BASOPHILS # (AUTO) 0.1 K/uL (0.00-0.22); BASOPHILS % (AUTO) 0.6 % (0.0-2.0); EOSINOPHILS # (AUTO) 1.6 K/uL (0-0.4); EOSINOPHILS % (AUTO) 10.9 % (0.0-4.0); HEMATOCRIT 22.2 % (36-52); HEMOGLOBIN 7.6 g/dL (12.0-18.0); LYMPHOCYTES # (AUTO) 1.3 K/uL (2.0-11.5); MEAN CORPUSCULAR HEMOGLOBIN 31 pg (27-31); MEAN CORPUSCULAR HGB CONC 34 g/dL (33-37); MEAN CORPUSCULAR VOLUME 90.5 fL (80-94); MONOCYTES # (AUTO) 1.9 K/uL (0.8-1.0); NEUTROPHILS # (AUTO) 9.6 K/uL (1.8-7.7); NEUTROPHILS % (AUTO) 66.5 % (42.2-75.2); PLATELET COUNT (AUTO) 100 K/uL (140-450); RED BLOOD CELL COUNT(AUTO) 2.45 MIL/uL (4.20-6.10); RED CELL DISTRIBUTION WIDTH 18.9 % (11.6-13.7); WHITE BLOOD COUNT (AUTO) 14.5 K/uL (4.8-10.8)
[2023-07-26 07:17] LABS: INR 2.06 (0.8-1.2); PARTIAL THROMBOPLASTIN TIME 44.2 secs (22-35.6); PROTHROMBIN TIME 20.9 secs (10.8-13.4)
[2023-07-26 07:41] LABS: ANION GAP 12.2 (8-16); CALCIUM 8.1 mg/dL (8.5-10.1); CARBON DIOXIDE 27.1 mmol/L (21-32); CREATININE 1.2 mg/dL (0.6-1.3); MAGNESIUM 1.9 mg/dL (1.8-2.4); PHOSPHORUS 3.1 mg/dL (2.5-4.9); POTASSIUM 4.3 mmol/L (3.5-5.1); TOTAL BILIRUBIN 11.4 mg/dL (0.0-1.0); TOTAL PROTEIN, SERUM 6.6 g/dL (6.4-8.2)
[2023-07-26] MEDS ORDERED: FUROSEMIDE 20 MG/2 ML VIAL IVP SCH (09:00)
== END 2023-07-26 08:45 | disposition left against medical advice (07) | DRG 280 ==
LOC: MED 13:49 → MTU 17:12
PROVIDERS: ADMIT Hospitalist; ATTEND Hospitalist
PROC: 0DJ08ZZ Inspection of Upper Intestinal Tract, Via Natural or Artificial Opening Endoscopic (ICD-10-PCS; 2023-07-24)
PROC: 0W993ZZ Drainage of Right Pleural Cavity, Percutaneous Approach (ICD-10-PCS; principal; 2023-07-25)
PROC: 0W9G3ZZ Drainage of Peritoneal Cavity, Percutaneous Approach (ICD-10-PCS; 2023-07-25)
PROC: 30233K1 Transfusion of Nonautologous Frozen Plasma into Peripheral Vein, Percutaneous Approach (ICD-10-PCS; 2023-07-25)
PROC: 30233N1 Transfusion of Nonautologous Red Blood Cells into Peripheral Vein, Percutaneous Approach (ICD-10-PCS; 2023-07-25)
DX: K70.31 Alcoholic cirrhosis of liver with ascites (principal); N17.0 Acute kidney failure with tubular necrosis; R65.20 Severe sepsis without septic shock; K76.7 Hepatorenal syndrome; E44.0 Moderate protein-calorie malnutrition; J18.9 Pneumonia, unspecified organism; D62 Acute posthemorrhagic anemia; J90 Pleural effusion, not elsewhere classified; A41.9 Sepsis, unspecified organism; K72.00 Acute and subacute hepatic failure without coma; K92.2 Gastrointestinal hemorrhage, unspecified; D64.9 Anemia, unspecified; N18.9 Chronic kidney disease, unspecified; Z79.899 Other long term (current) drug therapy; Z68.30 Body mass index [BMI] 30.0-30.9, adult; K76.82 Hepatic encephalopathy
CPT/HCPCS: 36415; 36430; 49083; 71045; 71250; 76604; 76705; 76942; 80048; 80053; 80076; 81001; 82140; 82570; 82945; 83690; 83735; 84100; 84157; 84300; 85018; 85025; 85610; 85730; 86886; 86900; 86901; 86920; 87070; 87075; 87081; 87205; 89051; 99285; J0696; J1200; J1940; J2001; J2185; J2250; J2270; J3010; J3475; J7030; J7060; P9016; P9017; Q0092